=== PATIENT | female | born 1955 | race American Indian/Alaskan Native ===

== ENCOUNTER 2018-10-17 13:32 | Emergency (ER) | payer BC ==
[2018-10-17] MEDS ORDERED: NACL 0.9% 500 ML 500 ML IV ONE (13:52)
[2018-10-17] MEDS ORDERED: TYLENOL PO ONE (13:53)
[2018-10-17 14:13] LABS: Basophils % (Auto) 0.3 % (0.0-1.8); Eosinophils % (Auto) 0.1 % (0.0-4.3); Hematocrit 40.7 % (30.3-42.9); Hemoglobin 14.2 gm/dl (10.1-14.3); Lymphocytes # (Auto) 0.4 K/mm3 (1.2-5.4); Lymphocytes % (Auto) 3.1 % (13.4-35.0); Mean Corpuscular HGB Conc 35 % (30-34); Mean Corpuscular Volume 89 fl (79-97); Monocytes # (Auto) 0.9 K/mm3 (0.0-0.8); Monocytes % (Auto) 7.8 % (0.0-7.3); Platelet Count 233 K/mm3 (140-440); Red Blood Count 4.59 M/mm3 (3.65-5.03); Red Cell Distribution Width 14.3 % (13.2-15.2)
--- NOTE | 2018-10-17 14:13 | Emergency Department Report ---
HPI - General Chief Complaint: Fever Time Seen by Provider: 10/17/18 14:00 - HPI HPI: Room 18 The patient is a 62-year-old female presenting with chief complaint of fever and shortness of breath. The patient states his symptoms began yesterday with sil rtness of breath and chills and fever. Patient states she's had a cough productive of clear sputum since yesterday. Patient denies rhinorrhea dysuria or hematuria. Patient denies nausea vomiting or diarrhea. The patient was measured to have temperature 104F at home. The patient states that she had been bitten by 3 ticks on her left hip approximately one week ago. The patient states she saw physician was placed on a steroid taper and given antihistamines Location: [See above] Duration: [See above] Quality: Chills Severity: Moderate Modifying factors: [see above] Context: [see above] Mode of transportation: [not driving] ED Past Medical Hx - Past Medical History Hx Hypertension: Yes - Surgical History Past Surgical History?: No - Family History Family history: no significant - Social History Smoking Status: Current Every Day Smoker (1 pack per day) Substance Use Type: None (denies illicit drug use), Alcohol (occasional) - Medications Home Medications: Home Medications Medication Instructions Recorded Confirmed Last Taken Type ALBUTEROL Inhaler (OR & NICU) 2 puff IH QID PRN #1 inhalation 10/17/18 Unknown Rx [Proair] HYDROcodone/APAP 5-325 [Edcouch 1 - 2 each PO Q6HR PRN #10 tablet 10/17/18 Unknown Rx 5/325] levoFLOXacin [Levaquin TAB] 500 mg PO QDAY #10 tablet 10/17/18 Unknown Rx ED Review of Systems ROS: Stated complaint: WEAKNESS/CHILLS Other details as noted in HPI Constitutional: chills, fever Eyes: denies: eye pain ENT: denies: throat pain Respiratory: cough, shortness of breath Cardiovascular: denies: chest pain Endocrine: no symptoms reported Gastrointestinal: denies: nausea, vomiting Genitourinary: denies: dysuria, hematuria Musculoskeletal: denies: back pain Neurological: denies: headache Physical Exam - Physical Exam Vital Signs: Vital Signs 10/17/18 10/17/18 15:31 16:50 Temperature 101.7 F H 99.6 F Pulse Rate 100 H 89 Respiratory 16 16 Rate Blood Pressure 117/62 115/62 [Right] O2 Sat by Pulse 95 95 Oximetry Physical Exam: GENERAL: The patient is well-developed well-nourished female lying on stretcher not appearing to be in acute distress. [] HEENT: Normocephalic. Atraumatic. Extraocular motions are intact. Patient has moist mucous membranes. NECK: Supple. No meningitic signs are noted. Trachea midline CHEST/LUNGS: Clear to auscultation. There is no respiratory distress noted. HEART/CARDIOVASCULAR: Regular. There is no tachycardia. There is no gallop rub or murmur. ABDOMEN: Abdomen is soft, nontender. Patient has normal bowel sounds. There is no abdominal distention. SKIN: There are 3 areas of the left hip and thigh from previous tick bites. There is a quarter-sized region of erythema surrounding one of the bite sites. No lymphangitic streaking. . There is no edema. There is no diaphoresis. NEURO: The patient is awake, alert, and oriented. The patient is cooperative. The patient has no focal neurologic deficits. The patient has normal speech MUSCULOSKELETAL: There is no evidence of acute injury. ED Medical Decision Making - Lab Data Result diagrams: 10/17/18 13:57 10/17/18 13:57 - Radiology Data Radiology results: report reviewed (chest x-ray), image reviewed (chest x-ray) interpreted by me: Chest x-ray-right lower lobe infiltrate [facility] [address] [place] [address] XRay Report Signed Patient: SARAH PEOPLES MR#: [id number] : 1955 Acct:[id number] Age/Sex: 62 / F ADM Date: 10/17/18 Loc: ED Attending Dr: Ordering Physician: RADAMES DALEY MD Date of Service: 10/17/18 Procedure(s): XR chest 1V ap Accession Number(s): [id number] cc: RADAMES DALEY MD Fluoro Time In Minutes: AP CHEST: HISTORY: Possible sepsis No comparison. There is a very subtle air space opacity in the mid right lung which could represent an early infiltrate. The left lung is clear. No pleural effusion or pneumothorax. Heart size is at the upper limits of normal. The bony structures are intact. IMPRESSION: Question an early right lung infiltrate. Correlate for pneumonia. Transcribed By: TTR Dictated By: LU PRUETT JR, MD Electronically Authenticated By: LU PRUETT JR, MD Signed Date/Time: 10/17/181454 DD/ 53 TD/TT: 10/17/181454 - Differential Diagnosis pneumonia, UTI, rickettsial disease Critical care attestation.: If time is entered above; I have spent that time in minutes in the direct care of this critically ill patient, excluding procedure time. ED Disposition Clinical Impression: Pneumonia, Shortness of breath Disposition: - TO HOME OR SELFCARE Is pt being admited?: No Does the pt Need Aspirin: No Condition: Stable Instructions: Bacterial Pneumonia (ED) Additional Instructions: Return to the emergency department immediately should you develop worsening symptoms, fever, inability to tolerate food or liquid or any other concerns. Prescriptions: levoFLOXacin [Levaquin TAB] 500 mg PO QDAY #10 tablet HYDROcodone/APAP 5-325 [Edcouch 5/325] 1 - 2 each PO Q6HR PRN #10 tablet PRN Reason: Pain ALBUTEROL Inhaler (OR & NICU) [Proair] 2 puff IH QID PRN #1 inhalation PRN Reason: Shortness Of Breath Referrals: [facility] MD RAMAN [Primary Care Provider] - 3-5 Days ANTHONY DYE DO [Staff Physician] - 3-5 Days (Dr Dye is a primary physician. Please follow with him to be established as a patient) Time of Disposition: 17:02
[2018-10-17 14:24] LABS: INR 0.99 (0.87-1.13)
[2018-10-17 14:42] LABS: Alanine Aminotransferase 22 units/L (7-56); Albumin 3.9 g/dL (3.9-5); BUN/Creatinine Ratio 9; Blood Urea Nitrogen 7 mg/dL (7-17); Calcium 9.4 mg/dL (8.4-10.2); Hemolysis Index 11
--- NOTE | 2018-10-17 14:59 | XRay Report ---
AP CHEST: HISTORY: Possible sepsis No comparison. There is a very subtle air space opacity in the mid right lung which could represent an early infiltrate. The left lung is clear. No pleural effusion or pneumothorax. Heart size is at the upper limits of normal. The bony structures are intact. IMPRESSION: Question an early right lung infiltrate. Correlate for pneumonia.
[2018-10-17] MEDS ORDERED: TORADOL IV ONE (15:33)
[2018-10-17] MEDS ORDERED: LEVAQUIN PO ONE (15:35)
[2018-10-17 16:51] VITALS: BP 115/62
== END 2018-10-17 17:37 | disposition home or self-care (01) ==
LOC: ED 13:32
DX: J18.9 Pneumonia, unspecified organism (principal); I10 Essential (primary) hypertension; F17.210 Nicotine dependence, cigarettes, uncomplicated
CPT/HCPCS: 36415; 71045; 80053; 82140; 82805; 85025; 85610; 87040; 96374; 99284; J1885; J7040